=== PATIENT | female | born 1990 | race Caucasian/White ===

== ENCOUNTER 2018-06-16 23:02 | Emergency (ER) | payer OTHER ==
[2018-06-16] MEDS ORDERED: Silver Sulfadiazine 1% CREAM (50 gm) TOP STA (23:35)
[2018-06-17] MEDS ORDERED: Silver Sulfadiazine 1% CREAM (50 gm) ONE (00:06)
[2018-06-17] MEDS ORDERED: Tdap Vaccine 0.5 ml Vial (10-64 yrs) IM ONE (00:16)
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
[2018-06-17 02:44] VITALS: BP 117/64; PULSE 88; RESP 18; TEMP 98
[2018-06-17 04:24] VITALS: O2SAT 98
== END 2018-06-17 00:20 | disposition home or self-care (01) ==
LOC: H.ER 23:02
DX: T14.8XXA Other injury of unspecified body region, initial encounter (principal); R21 Rash and other nonspecific skin eruption